=== PATIENT | female | born 1985 | race Caucasian/White ===

== ENCOUNTER 2017-01-10 08:59 | Inpatient (IN) ==
[2017-01-08 10:25] LABS: HEMATOCRIT 34.6 % (37.0-47.0); HEMOGLOBIN 12.1 g/dL (12.0-16.0); MCH 35.3 PG (27-31); MCV 100.9 FL (81-99); MPV 9.7 FL (7.4-10.4); RBC 3.43 XMIL (4.2-5.4)
[2017-01-10] MEDS ORDERED: REGLAN PO ONE (09:03)
[2017-01-10] MEDS ORDERED: KEFZOL 1 GM/D5W 1 GM/50 ML IVPB IV PRN (09:03)
[2017-01-10] MEDS ORDERED: PEPCID PO ONE (09:03)
[2017-01-10] MEDS ORDERED: BICITRA PO ONE (09:06)
[2017-01-10] MEDS ORDERED: LR 1,000 ML IV SCH (09:15)
[2017-01-10] MEDS ORDERED: PEPCID IV ONE (09:30)
[2017-01-10 10:18] LABS: MANUAL DIFF NEEDED? NO; URINE SOURCE VOIDED
[2017-01-10 10:20] LABS: BASO% 0.2 % (0.0-0.8); EOS# 0.02 X1000 (0.0-0.7); EOS% 0.2 % (0.0-10.0); HEMATOCRIT 33.3 % (37.0-47.0); HEMOGLOBIN 11.8 g/dL (12.0-16.0); IMM GRAN# 0.07 X1000 (0.0-0.04); IMM GRAN% 0.7 % (0.0-0.5); LYMPH# 1.31 X1000 (1.2-3.4); LYMPH% 13.2 % (20.5-51.1); MCH 35.6 PG (27-31); MCHC 35.4 g/dL (33-37); MCV 100.6 FL (81-99); MONO# 0.93 X1000 (0.11-0.59); MONO% 9.4 % (1.7-9.3); MPV 10.4 FL (7.4-10.4); NEUT% 76.3 % (42.2-75.2); PLT 186 X1000 (130-400); RBC 3.31 XMIL (4.2-5.4)
--- NOTE | 2017-01-10 10:20 | HISTORY AND PHYSICAL ---
HISTORY OF PRESENT ILLNESS: The patient is a 32-year-old female 1, para 0 who is admitted at this time for for delivery. She has a nonfavorable cervix and desires to be delivered. Options were discussed with her, and she wishes to proceed with at this time. She denies any bowel or bladder difficulties. Blood type is O negative. GBS was negative. PAST MEDICAL HISTORY: Tonsillectomy. MEDICINES: vitamins. ALLERGIES: None. PHYSICAL EXAMINATION: GENERAL: Well-developed female. HEENT: Benign. NECK: Supple. LUNGS: Clear. CARDIOVASCULAR: Regular rate and rhythm. ABDOMEN: Soft, nontender. EXTREMITIES: Without clubbing, cyanosis, or edema. ASSESSMENT AND PLAN: A 32-year-old with a term intrauterine admitted at this time for a primary for delivery. Risks were explained. cc: Sal Sarabia MD
[2017-01-10 10:25] LABS: BILIRUBIN URINE NEGATIVE (NEGATIVE); BLOOD URINE NEGATIVE (NEGATIVE); CLARITY CLEAR (CLEAR); COLOR YELLOW; GLUCOSE URINE NEGATIVE (NEGATIVE); LEUKOCYTES URINE TRACE (NEGATIVE); NITRITE URINE NEGATIVE (NEGATIVE); PROTEIN URINE TRACE mg/dL (NEGATIVE); SP GRAVITY URINE 1.015; UROBILINOGEN URINE NORMAL
[2017-01-10] MEDS ORDERED: HYDROXYZINE IM PRN (11:42)
[2017-01-10] MEDS ORDERED: PITOCIN IM PRN (11:42)
[2017-01-10] MEDS ORDERED: CYTOTEC PO PRN (11:42)
[2017-01-10] MEDS ORDERED: M-M-R II VACCINE SUBQ ONE (11:42)
[2017-01-10] MEDS ORDERED: MYLICON PO PRN (11:42)
[2017-01-10] MEDS ORDERED: PITOCIN 20 UNITS/LR 20 UNITS/1,000 ML IV.SOLN IV ONE (11:42)
[2017-01-10] MEDS ORDERED: BOOSTRIX VACCINE IM ONE (11:42)
[2017-01-10] MEDS ORDERED: DEMEROL IM PRN (11:42)
[2017-01-10] MEDS ORDERED: AMBIEN PO PRN (11:42)
[2017-01-10] MEDS ORDERED: DEMEROL PO PRN ×2 (11:42)
[2017-01-10] MEDS ORDERED: DULCOLAX PR PRN (11:42)
[2017-01-10] MEDS ORDERED: HYDROXYZINE PO PRN (11:42)
[2017-01-10] MEDS ORDERED: PHENERGAN IM PRN (11:42)
[2017-01-10] MEDS ORDERED: PITOCIN ONE ×2 (11:54→12:15)
[2017-01-10] MEDS ORDERED: ZOFRAN ONE ×2 (11:54→12:15)
[2017-01-10] MEDS ORDERED: NEO-SYNEPHRINE ONE ×2 (11:54→12:15)
[2017-01-10] MEDS ORDERED: DURAMORPH ONE (11:56)
[2017-01-10] MEDS ORDERED: ROBINUL ONE (12:15)
[2017-01-10] MEDS ORDERED: TORADOL ONE (12:27)
--- NOTE | 2017-01-10 13:09 | OPERATIVE NOTE ---
PROCEDURE DATE : 01/10/2017 SURGEON: Sal Sarabia MD PREPARED FOODS PRODUCTION TEAM MEMBER: Altaf Chaudhari MD PREOPERATIVE DIAGNOSES: 1. Term intrauterine . 2. Cephalopelvic disproportion. 3. Desires section. POSTOPERATIVE DIAGNOSES: 1. Term intrauterine . 2. Cephalopelvic disproportion. 3. Desires section. PROCEDURE: Primary low transverse section. ANESTHESIA: Spinal. FINDINGS: The patient had a male born, weight 7 pounds 3 ounces, Apgars 9 and 10. DESCRIPTION OF OPERATION: The patient was taken to the operating room, given spinal anesthesia, given Ancef IV, and prepped and draped in a sterile fashion. Pump hose and stockings were placed. We made a Pfannenstiel skin incision, sharply dissected down to fascia. The fascia was dissected off the rectus muscle. The peritoneum was entered, we dissected down to create the bladder flap. A low transverse incision was made. Clear fluid was noted upon entering the amniotic sac. The infant was delivered using fundal pressure. Cord blood was obtained. The placenta was removed. The uterus was externalized and cleaned with a clean lap. The incision was closed with #1 chromic in a locking fashion. Good hemostasis was noted throughout. The uterus was put back in its anatomic position. The rectus muscle was closed with #0 chromic suture. Hemostasis was maintained with Bovie. The fascia was closed with #1 Vicryl, 3-0 Vicryl was used subcuticularly and the skin was closed with a 4-0 Biosyn. Estimated blood loss was 400 mL. Mother and infant are doing well. cc: Sal Sarabia MD
[2017-01-10] MEDS ORDERED: BENADRYL IV PRN (13:37)
[2017-01-10] MEDS ORDERED: ZOFRAN IV PRN ×2 (13:37)
[2017-01-10] MEDS ORDERED: NARCAN INJ PRN (13:37)
[2017-01-10] MEDS ORDERED: ZOFRAN ODT PO PRN (13:37)
[2017-01-10] MEDS ORDERED: PNEUMOVAX 23 IM ONE (13:45)
[2017-01-10] MEDS ORDERED: NS IV SCH (17:00)
[2017-01-10] MEDS ORDERED: NARCAN IV SCH (17:00)
[2017-01-10] MEDS: MYLICON PO SCH ×3 (17:17→21:07)
[2017-01-10] MEDS: PERICOLACE PO SCH (21:07)
[2017-01-10] MEDS: MORPHINE IV PRN (21:07)
[2017-01-10] MEDS: PITOCIN 10 UNITS/LR 10 UNIT/1,000 ML IV.SOLN IV SCH (21:12)
[2017-01-11] MEDS: MORPHINE IV PRN ×2 (01:08→05:24)
[2017-01-11] MEDS: PITOCIN 10 UNITS/LR 10 UNIT/1,000 ML IV.SOLN IV SCH (05:20)
[2017-01-11 06:54] LABS: HEMATOCRIT 30.2 % (37.0-47.0); HEMOGLOBIN 10.4 g/dL (12.0-16.0); MCHC 34.4 g/dL (33-37); MCV 101.7 FL (81-99); MPV 9.6 FL (7.4-10.4); RBC 2.97 XMIL (4.2-5.4)
[2017-01-11] MEDS ORDERED: NARCAN IV PRN (07:34)
[2017-01-11] MEDS ORDERED: NS IV PRN (07:34)
[2017-01-11] MEDS ORDERED: PERCOCET-5 PO PRN (11:04)
[2017-01-11] MEDS: MOTRIN PO PRN ×2 (11:07→18:07)
[2017-01-11] MEDS: MYLICON PO SCH ×4 (11:07→20:34)
[2017-01-11] MEDS: PERCOCET-10 PO PRN ×2 (11:38→18:07)
[2017-01-11] MEDS ORDERED: LR 1,000 ML IV SCH (11:42)
[2017-01-11] MEDS: PERICOLACE PO SCH (20:34)
[2017-01-12] MEDS: PERCOCET-10 PO PRN ×2 (04:49→12:42)
[2017-01-12] MEDS: MOTRIN PO PRN ×2 (04:49→12:42)
[2017-01-12] MEDS: MYLICON PO SCH (08:17)
[2017-01-12 09:22] VITALS: BP 120/66
--- NOTE | 2017-01-13 05:59 | DISCHARGE SUMMARY ---
ADMISSION DATE: 01/10/2017 DISCHARGE DATE: 01/12/2017 PRINCIPAL DIAGNOSIS: Intrauterine . SECONDARY DIAGNOSIS: Elective section. PRINCIPAL PROCEDURE: Primary low transverse section. HOSPITAL COURSE: Patient was admitted on 01/10/2017 for a scheduled primary low transverse section. Procedure was performed without complications and patient was subsequently transferred to labor and delivery once deemed stable where her postoperative care has remained uneventful. Patient is tolerating her pain with p.o. medications. She is ambulating without assistance. She has no nausea or vomiting. Lochia is less than menses. The patient is stable for discharge on postoperative day #2. CONDITION ON DISCHARGE: Stable. AMBULATION CAPACITY: Independent. FEEDING CAPACITY: Independent. LOCOMOTION CAPACITY: Independent. REHABILITATION POTENTIAL: Good. PROGNOSIS: Good. DISCHARGE MEDICATIONS: Include Percocet 5/325 one to two tablets p.o. q.6 hours p.r.n. pain. DIET: The patient is to maintain a regular diet. PHYSICAL ACTIVITY: As tolerated. DISCHARGE INSTRUCTIONS: Patient is told to call or return if fever greater than 100.4, heavy vaginal bleeding, foul smelling vaginal discharge, or any other acute changes. She is to be discharged home with orders to follow up with Dr. Sarabia in 1 week. cc: MD Sal Brunner MD
== END 2017-01-12 13:05 | disposition home or self-care (01) ==
LOC: P.LD 08:59
PROVIDERS: ADMIT Obstetrics & Gynecology; ATTEND Obstetrics & Gynecology